=== PATIENT | male | born 1965 | race Caucasian/White ===

== ENCOUNTER 2023-03-28 22:31 | Inpatient (IN) | payer MEDICAID ==
[~2023-03-28] VITALS: Ht 165.1 cm; Wt 50.1 kg
[~2023-03-28 22:31] MED LIST: AMLO10TA80 PO; DICL50TA7 PO; FERR210T PO; IMOD PO; INSULIN; LISI40TA13 PO; PATI8.4P PO; SEVE800T25 PO; TRAZ-251 PO
[2023-03-29] VITALS (20 sets, daily range): BP systolic 128–177; BP diastolic 63–82; PULSE 48–82; RESP 16–74; TEMP 97.9–98.8; O2SAT 98
[2023-03-29] MEDS ORDERED: INSULIN REGULAR (HUMULIN R) 300UNITS/3ML VIAL IV ONE
[2023-03-29] MEDS ORDERED: SODIUM BICARBONATE 8.4% 1 MEQ/ML 50ML SYR IV ONE
[2023-03-29] MEDS ORDERED: DEXTROSE 50% WATER 50ML SYRINGE IV ONE
[2023-03-29 00:03] LABS: BASOPHILS % 0.5 % (0.0-2.0); CHLORIDE 106 mEq/L (98-107); EOSINOPHILS % 2.6 % (0.0-5.0); HEMATOCRIT. 33.8 % (42.0-52.0); INDEX HEMOLYSI 4 (1-3); INDEX ICTERIC 1 (1-4); INDEX LIPEMIC 1 (1-3); LYMPHOCYTES % 15.4 % (20.0-50.0); MEAN CORPUSCULAR HEMOGLOBIN 30.7 pg (28.0-32.0); MEAN CORPUSCULAR HGB CONC 32.4 g/dL (31.0-37.0); MEAN CORPUSCULAR VOLUME 94.6 fL (80.0-94.0); MEAN PLATELET VOLUME 7.7 fl (7.4-10.4); MONOCYTES % 11.8 % (2.0-8.0); NEUTROPHILS % 69.7 % (40.0-76.0); PLATELET 146 x1000/uL (130-400); RED BLOOD CELL COUNT 3.58 mill/uL (4.7-6.1); RED CELL DISTRIBUTION WIDTH 15.5 % (11.6-14.6); SODIUM 130 mEq/L (136-145); WHITE BLOOD COUNT 11.8 x1000/uL (4.5-11.0)
[2023-03-29 00:14] LABS: ALANINE AMINOTRANSFERASE 23 IU/L (13-61); ALBUMIN 2.9 g/dL (3.4-5.0); ASPARTATE AMINOTRANSFERASE 41 IU/L (15-37); BILIRUBIN TOTAL 0.7 mg/dL (0.1-1.0); CALCIUM 8.9 mg/dL (8.5-10.1); CARBON DIOXIDE 15 mEq/L (21-32); GLUCOSE 190 mg/dL (70-105); PROTEIN TOTAL 7.6 g/dL (6.0-8.3); TROPONIN I HIGH SENSITIVITY 17 ng/L (<78); UREA NITROGEN BLOOD 49 mg/dL (7-21)
[2023-03-29 00:22] LABS: CREATININE 6.3 mg/dL (0.6-1.3); POTASSIUM 6.5 mEq/L (3.5-5.1)
[2023-03-29] MEDS ORDERED: ALBUTEROL (0.083%) 2.5MG/3ML NEB HHN NR (01:30)
[2023-03-29] MEDS ORDERED: CALCIUM CHLORIDE 1GM/10ML SYR IV NR (01:30)
[2023-03-29] MEDS ORDERED: SODIUM BICARBONATE 8.4% 1 MEQ/ML 50ML SYR IV NR (01:30)
[2023-03-29 02:58] LABS: TROPONIN I HIGH SENSITIVITY 20 ng/L (<78)
[2023-03-29] MEDS ORDERED: MAGNESIUM/ALUMINUM HYDROXIDE/SIMETHICONE 30ML UDC PO PRN (05:45)
[2023-03-29] MEDS ORDERED: ACETAMINOPHEN 325MG TABLET PO PRN ×2 (05:45)
[2023-03-29] MEDS ORDERED: DEXTROSE 50% WATER 50ML SYRINGE IV PRN (05:45)
[2023-03-29] MEDS ORDERED: IPRATROPIUM/ALBUTEROL 0.5-3(2.5)MG/3ML NEB NEB PRN (05:45)
[2023-03-29] MEDS ORDERED: CLONIDINE 0.1MG TABLET PO PRN (05:45)
[2023-03-29] MEDS ORDERED: ONDANSETRON HCL 4MG/2ML INJ IV PRN (05:45)
[2023-03-29] MEDS ORDERED: GUAIFENESIN 200MG/10ML SUGAR FREE UDC PO PRN (05:45)
[2023-03-29] MEDS: BLOOD SUGAR DIAGNOSTIC STRIP TEST SCH ×4 (07:30→21:00)
[2023-03-29] MEDS: INSULIN LISPRO 100 UNITS/ML SUBCUT SCH ×4 (08:00→21:00)
[2023-03-29] MEDS: HYDROCODONE/ACETAMINOPHEN 5/325MG TABLET PO PRN ×2 (09:14→19:55)
[2023-03-29] MEDS: ENOXAPARIN 30MG/0.3ML SYR SUBCUT SCH (09:14)
[2023-03-29 09:51] LABS: BASOPHILS % 0.5 % (0.0-2.0); EOSINOPHILS % 0.1 % (0.0-5.0); HEMATOCRIT. 34.3 % (42.0-52.0); HEMOGLOBIN. 11.3 g/dL (14.0-18.0); LYMPHOCYTES % 9.2 % (20.0-50.0); MEAN CORPUSCULAR HEMOGLOBIN 30.9 pg (28.0-32.0); MEAN CORPUSCULAR VOLUME 93.6 fL (80.0-94.0); MEAN PLATELET VOLUME 9.1 fl (7.4-10.4); MONOCYTES % 10.6 % (2.0-8.0); NEUTROPHILS % 79.6 % (40.0-76.0); PLATELET 150 x1000/uL (130-400); RED BLOOD CELL COUNT 3.67 mill/uL (4.7-6.1); RED CELL DISTRIBUTION WIDTH 15.7 % (11.6-14.6); WHITE BLOOD COUNT 8.4 x1000/uL (4.5-11.0)
[2023-03-29 09:53] LABS: CHLORIDE 104 mEq/L (98-107); INDEX HEMOLYSI 1 (1-3); INDEX ICTERIC 1 (1-4); INDEX LIPEMIC 1 (1-3); POTASSIUM 4.6 mEq/L (3.5-5.1); SODIUM 134 mEq/L (136-145)
[2023-03-29 10:04] LABS: ALANINE AMINOTRANSFERASE 19 IU/L (13-61); ALBUMIN 3.1 g/dL (3.4-5.0); ASPARTATE AMINOTRANSFERASE 18 IU/L (15-37); BILIRUBIN TOTAL 0.5 mg/dL (0.1-1.0); CALCIUM 9.9 mg/dL (8.5-10.1); CARBON DIOXIDE 18 mEq/L (21-32); GLUCOSE 153 mg/dL (70-105); PHOSPHORUS 5.7 mg/dL (2.5-4.9); PROTEIN TOTAL 7.7 g/dL (6.0-8.3); UREA NITROGEN BLOOD 59 mg/dL (7-21)
[2023-03-29 10:14] LABS: CREATININE 7.2 mg/dL (0.6-1.3)
[2023-03-29] MEDS: FOLIC ACID/VITAMIN B COMP W-C TABLET PO SCH (13:30)
[2023-03-29] MEDS: AMLODIPINE 10MG TABLET PO SCH (13:45)
[2023-03-29 14:47] LABS: HEPATITIS B SURFACE ANTIGEN NEGATIVE
[2023-03-29 15:15] LABS: HEPATITIS C VIR.AB 0.15 INDEXVAL (0.00-0.80)
[2023-03-30] VITALS: BP 162/43; PULSE 59; RESP 30; TEMP 99.9
[2023-03-30 04:00] VITALS: BP 143/50; PULSE 57; RESP 17; TEMP 99.5
[2023-03-30] MEDS: METHYLPREDNISOLONE SOD SUCC 40MG VIAL IV SCH ×2 (05:28→17:34)
[2023-03-30 07:11] LABS: HEMATOCRIT. 32.8 % (42.0-52.0); HEMOGLOBIN. 10.9 g/dL (14.0-18.0); MEAN CORPUSCULAR HEMOGLOBIN 31.4 pg (28.0-32.0); MEAN CORPUSCULAR HGB CONC 33.3 g/dL (31.0-37.0); MEAN CORPUSCULAR VOLUME 94.2 fL (80.0-94.0); MEAN PLATELET VOLUME 8.9 fl (7.4-10.4); PLATELET 135 x1000/uL (130-400); RED BLOOD CELL COUNT 3.49 mill/uL (4.7-6.1); RED CELL DISTRIBUTION WIDTH 16.1 % (11.6-14.6)
[2023-03-30 07:12] LABS: DIFFERENTIAL COMMENT 1
[2023-03-30 07:55] LABS: CHLORIDE 100 mEq/L (98-107); INDEX HEMOLYSI 1 (1-3); INDEX ICTERIC 1 (1-4); INDEX LIPEMIC 1 (1-3); POTASSIUM 5.3 mEq/L (3.5-5.1); SODIUM 136 mEq/L (136-145)
[2023-03-30 08:00] VITALS: BP 162/57; PULSE 62; RESP 62; TEMP 97.4
[2023-03-30] MEDS: ENOXAPARIN 30MG/0.3ML SYR SUBCUT SCH (08:00)
[2023-03-30 08:13] LABS: ALANINE AMINOTRANSFERASE 16 IU/L (13-61); ALBUMIN 3.2 g/dL (3.4-5.0); ASPARTATE AMINOTRANSFERASE 15 IU/L (15-37); BILIRUBIN TOTAL 0.8 mg/dL (0.1-1.0); CARBON DIOXIDE 20 mEq/L (21-32); CREATINE KINASE 53 IU/L (39-308); GLUCOSE 128 mg/dL (70-105); HAPTOGLOBIN 222 mg/dL (30-200); IRON 21 ug/dL (50-175); LACTATE DEHYDROGENASE 168 IU/L (100-240); PHOSPHORUS 6.5 mg/dL (2.5-4.9); PROTEIN TOTAL 8.2 g/dL (6.0-8.3); TOTAL IRON BINDING CAPACITY 213 ug/dL (250-450); UREA NITROGEN BLOOD 36 mg/dL (7-21); URIC ACID 4.6 mg/dL (2.6-7.2)
[2023-03-30 08:19] LABS: CREATININE 5.3 mg/dL (0.6-1.3)
[2023-03-30] MEDS: BLOOD SUGAR DIAGNOSTIC STRIP TEST SCH ×4 (08:26→19:40)
[2023-03-30] MEDS: FOLIC ACID/VITAMIN B COMP W-C TABLET PO SCH (09:00)
[2023-03-30] MEDS: COLCHICINE 0.6MG TABLET PO SCH (09:00)
[2023-03-30] MEDS: AMLODIPINE 10MG TABLET PO SCH (09:00)
[2023-03-30 09:01] LABS: BODY FLUID RBC 69000 /cu mm (0-2000); BODY FLUID WBC 61250 /cu mm (0-200)
[2023-03-30 09:29] LABS: VITAMIN B12 SERUM 663 pg/mL (211-911)
[2023-03-30 09:51] LABS: ERYTHROCYTE SEDIMENTATION RATE 83 mm/hr (0-20)
[2023-03-30 10:51] LABS: BODY FLUID MONOCYTES 5 %
[2023-03-30 12:00] VITALS: BP 158/57; PULSE 65; RESP 17; TEMP 98
[2023-03-30] MEDS: INSULIN LISPRO 100 UNITS/ML SUBCUT SCH ×3 (12:05→20:34)
[2023-03-30 12:07] LABS: FERRITIN 1356 ng/mL (22-322)
[2023-03-30] MEDS ORDERED: NALOXONE HCL 0.4MG/ML VIAL IV PRN (12:45)
[2023-03-30] MEDS: VELTASSA PO SCH (12:45)
[2023-03-30] MEDS ORDERED: NON FORMULARY PATIENT HOME MED PO SCH (13:00)
[2023-03-30] MEDS: OMEPRAZOLE 20MG CAPSULE EXTENDED RELEASE PO SCH (13:18)
[2023-03-30 16:00] VITALS: BP 161/62; PULSE 62; RESP 15; TEMP 98.3
[2023-03-30 19:19] VITALS: BP 150/55; PULSE 65; RESP 18; TEMP 97.5
[2023-03-31] VITALS (14 sets, daily range): BP systolic 127–168; BP diastolic 40–81; PULSE 56–70; RESP 18–19; TEMP 96.7–98
[2023-03-31 05:11] LABS: PLATELET ESTIMATE NORMAL
[2023-03-31] MEDS: BLOOD SUGAR DIAGNOSTIC STRIP TEST SCH ×4 (06:14→21:48)
[2023-03-31] MEDS: OMEPRAZOLE 20MG CAPSULE EXTENDED RELEASE PO SCH (06:22)
[2023-03-31] MEDS: METHYLPREDNISOLONE SOD SUCC 40MG VIAL IV SCH ×2 (06:24→18:00)
[2023-03-31 06:46] LABS: HEMATOCRIT. 34.9 % (42.0-52.0); HEMOGLOBIN. 11.4 g/dL (14.0-18.0); MEAN CORPUSCULAR HEMOGLOBIN 30.7 pg (28.0-32.0); MEAN CORPUSCULAR HGB CONC 32.7 g/dL (31.0-37.0); MEAN PLATELET VOLUME 8.7 fl (7.4-10.4); PLATELET 180 x1000/uL (130-400); RED BLOOD CELL COUNT 3.71 mill/uL (4.7-6.1); RED CELL DISTRIBUTION WIDTH 15.5 % (11.6-14.6); WHITE BLOOD COUNT 8.9 x1000/uL (4.5-11.0)
[2023-03-31 07:27] LABS: CREATININE 6.8 mg/dL (0.6-1.3)
[2023-03-31 08:30] LABS: DIFFERENTIAL COMMENT 1
[2023-03-31] MEDS: COLCHICINE 0.6MG TABLET PO SCH (08:57)
[2023-03-31] MEDS: FOLIC ACID/VITAMIN B COMP W-C TABLET PO SCH (08:57)
[2023-03-31] MEDS: INSULIN LISPRO 100 UNITS/ML SUBCUT SCH ×4 (08:58→21:49)
[2023-03-31] MEDS: AMLODIPINE 10MG TABLET PO SCH ×2 (09:09→12:04)
[2023-03-31] MEDS: VELTASSA PO SCH (09:09)
[2023-03-31 13:11] LABS: ANTI-JO 1 ABS <0.2 AI (0.0-0.9); RNP ANTIBODY 0.2 AI (0.0-0.9); SMITH ANTIBODY < 0.2 AI (0.0-0.9)
[2023-03-31 13:59] LABS: PLATELET ESTIMATE NORMAL
[2023-03-31] MEDS: DICLOFENAC SODIUM 75MG DR (EC) TABLET PO SCH (16:44)
[2023-03-31] MEDS: CEFTRIAXONE 2 G in DEXTROSE 5% WATER 50 ML IV SCH ×2 (17:55→18:50)
[2023-03-31] MEDS ORDERED: LIDOCAINE HCL 1% 10 MG/ML 10ML VIAL IJ NR (19:00)
[2023-03-31] MEDS ORDERED: METHYLPREDNISOLONE ACETATE 40MG/ML VIAL IM NR (19:30)
[2023-04-01 00:29] VITALS: BP 128/46; PULSE 64; RESP 20; TEMP 97.8
[2023-04-01 04:26] VITALS: BP 134/88; PULSE 70; RESP 20; TEMP 97
[2023-04-01] MEDS: BLOOD SUGAR DIAGNOSTIC STRIP TEST SCH ×4 (06:43→21:00)
[2023-04-01] MEDS: METHYLPREDNISOLONE SOD SUCC 40MG VIAL IV SCH (06:43)
[2023-04-01] MEDS: OMEPRAZOLE 20MG CAPSULE EXTENDED RELEASE PO SCH (06:44)
[2023-04-01] MEDS: INSULIN LISPRO 100 UNITS/ML SUBCUT SCH ×4 (06:47→21:00)
[2023-04-01 07:18] LABS: HEMATOCRIT 37.7 % (42.0-52.0); HEMOGLOBIN 12.2 g/dL (14.0-18.0); MEAN CORPUSCULAR HEMOGLOBIN 30.8 pg (28.0-32.0); MEAN CORPUSCULAR HGB CONC 32.3 g/dL (31.0-37.0); MEAN CORPUSCULAR VOLUME 95.1 fL (80.0-94.0); PLATELET 200 x1000/uL (130-400); RED BLOOD CELL COUNT 3.97 mill/uL (4.7-6.1); RED CELL DISTRIBUTION WIDTH 15.9 % (11.6-14.6); WHITE BLOOD COUNT 8.1 x1000/uL (4.5-11.0)
[2023-04-01 07:59] VITALS: BP 139/53; PULSE 67; RESP 20; TEMP 97.9
[2023-04-01 08:49] LABS: CALCIUM 7.9 mg/dL (8.5-10.1); PHOSPHORUS 6.5 mg/dL (2.5-4.9); POTASSIUM 4.7 mEq/L (3.5-5.1)
[2023-04-01] MEDS: COLCHICINE 0.6MG TABLET PO SCH (09:05)
[2023-04-01] MEDS: FOLIC ACID 1MG TABLET PO SCH (09:06)
[2023-04-01] MEDS: HYDROXYCHLOROQUINE SULFATE 200MG TABLET PO SCH (09:06)
[2023-04-01] MEDS: METHOTREXATE SODIUM 2 . 5MG TABLET PO SCH ×3 (09:06→17:03)
[2023-04-01] MEDS: FOLIC ACID/VITAMIN B COMP W-C TABLET PO SCH (09:06)
[2023-04-01] MEDS: VELTASSA PO SCH (09:07)
[2023-04-01 09:59] LABS: CREATININE 5.4 mg/dL (0.6-1.3)
[2023-04-01 12:27] VITALS: BP 156/59; PULSE 66; RESP 18; TEMP 97.4
[2023-04-01] MEDS ORDERED: LIDOCAINE HCL 1% 10 MG/ML 10ML VIAL ONE (12:31)
[2023-04-01] MEDS ORDERED: NON FORMULARY PATIENT HOME MED PO SCH (13:00)
[2023-04-01 15:55] VITALS: BP 135/35; PULSE 69; RESP 18; TEMP 97.7
[2023-04-01] MEDS: DICLOFENAC SODIUM 75MG DR (EC) TABLET PO SCH (17:03)
[2023-04-01] MEDS: CEFTRIAXONE 2 G in DEXTROSE 5% WATER 50 ML IV SCH (17:04)
[2023-04-01 20:00] VITALS: BP 138/55; PULSE 72; RESP 16; TEMP 97.4
[2023-04-02] VITALS (15 sets, daily range): BP systolic 127–152; BP diastolic 45–80; PULSE 60–88; RESP 18–20; TEMP 96.6–98.7; O2SAT 94
[2023-04-02] MEDS: BLOOD SUGAR DIAGNOSTIC STRIP TEST SCH ×3 (06:35→16:30)
[2023-04-02] MEDS: OMEPRAZOLE 20MG CAPSULE EXTENDED RELEASE PO SCH (06:37)
[2023-04-02] MEDS: INSULIN LISPRO 100 UNITS/ML SUBCUT SCH ×3 (06:38→17:20)
[2023-04-02] MEDS: FOLIC ACID 1MG TABLET PO SCH (08:28)
[2023-04-02] MEDS: COLCHICINE 0.6MG TABLET PO SCH (08:28)
[2023-04-02] MEDS: FOLIC ACID/VITAMIN B COMP W-C TABLET PO SCH (08:28)
[2023-04-02] MEDS: AMLODIPINE 10MG TABLET PO SCH (08:29)
[2023-04-02] MEDS: HYDROXYCHLOROQUINE SULFATE 200MG TABLET PO SCH (08:34)
[2023-04-02] MEDS: VELTASSA PO SCH (08:35)
[2023-04-02] MEDS ORDERED: PREDNISONE 20MG TABLET PO SCH (09:00)
[2023-04-02 09:07] LABS: ANGIOTENSION CONVERTING ENZYME 5 U/L (14-82)
[2023-04-02 13:07] LABS: CYTOPLASMIC C-ANCA <1:20 titer (Neg:<1:20); PERINUCLEAR P-ANCA <1:20 titer (Neg:<1:20)
[2023-04-02] MEDS: DICLOFENAC SODIUM 75MG DR (EC) TABLET PO SCH (17:15)
[2023-04-02] MEDS ORDERED: COLC0.6C3 MT (18:53)
[2023-04-02] MEDS ORDERED: FOLI-43 PO (18:53)
[2023-04-02] MEDS ORDERED: AMLO10TA80 PO (18:53)
[2023-04-02] MEDS ORDERED: LEVO-65 MT (18:53)
[2023-04-02] MEDS ORDERED: METH2.5T PO (18:53)
[2023-04-02] MEDS ORDERED: P20 PO (18:53)
[2023-04-02] MEDS ORDERED: HYDR200T35 PO (18:53)
[2023-04-02] MEDS ORDERED: LISI40TA13 PO (18:54)
[2023-04-02 19:07] LABS: ANTI-MYELOPEROXIDASE AB < 0.2 units (0.0-0.9); ANTI-PROTEINASE 3 ABS < 0.2 units (0.0-0.9); GLOMERULAR BASEMENT MEMB AB < 0 units (0.0-0.9)
[2023-04-03 09:07] LABS: ALDOLASE 8.6 U/L (3.3-10.3)
[2023-04-07 15:11] LABS: ACTIN (SMOOTH MUSCLE) ANTIBODY 6 Units (0-19); ANA IFA Negative (.); ANTI-DNA DOUBLE STRANDED QUANT 2 IU/mL (0-9); ATYPICAL P-ANCA <1:20 titer (Neg:<1:20)
== END 2023-04-02 19:00 | disposition home or self-care (01) | DRG 344 ==
LOC: ER 22:31 → EDBEDREQ 03-29 03:49 → 5EST 03-29 04:42 → 7EST 03-30 07:47
PROVIDERS: ADMIT Internal Medicine; ATTEND Internal Medicine
PROC: 5A1D70Z Performance of Urinary Filtration, Intermittent, Less than 6 Hours Per Day (ICD-10-PCS; 2023-03-29)
PROC: 0S9C3ZZ Drainage of Right Knee Joint, Percutaneous Approach (ICD-10-PCS; 2023-03-29)
PROC: 5A1D70Z Performance of Urinary Filtration, Intermittent, Less than 6 Hours Per Day (ICD-10-PCS; 2023-03-30)
PROC: 0S9C3ZZ Drainage of Right Knee Joint, Percutaneous Approach (ICD-10-PCS; principal; 2023-03-31)
PROC: 4A10X4Z Monitoring of Central Nervous Electrical Activity, External Approach (ICD-10-PCS; 2023-03-31)
PROC: 02HV33Z Insertion of Infusion Device into Superior Vena Cava, Percutaneous Approach (ICD-10-PCS; 2023-04-01)
PROC: B548ZZA Ultrasonography of Superior Vena Cava, Guidance (ICD-10-PCS; 2023-04-01)
PROC: 02H633Z Insertion of Infusion Device into Right Atrium, Percutaneous Approach (ICD-10-PCS; 2023-04-01)
PROC: 5A1D70Z Performance of Urinary Filtration, Intermittent, Less than 6 Hours Per Day (ICD-10-PCS; 2023-04-02)
DX: M00.9 Pyogenic arthritis, unspecified (principal); I13.2 Hypertensive heart and chronic kidney disease with heart failure and with stage 5 chronic kidney disease, or end stage renal disease; N18.6 End stage renal disease; E44.0 Moderate protein-calorie malnutrition; D63.1 Anemia in chronic kidney disease; E11.22 Type 2 diabetes mellitus with diabetic chronic kidney disease; E83.39 Other disorders of phosphorus metabolism; M25.461 Effusion, right knee; M11.9 Crystal arthropathy, unspecified; E87.5 Hyperkalemia; D86.9 Sarcoidosis, unspecified; M13.0 Polyarthritis, unspecified; S83.511A Sprain of anterior cruciate ligament of right knee, initial encounter; E11.65 Type 2 diabetes mellitus with hyperglycemia; R00.1 Bradycardia, unspecified; Z68.1 Body mass index [BMI] 19.9 or less, adult; M06.9 Rheumatoid arthritis, unspecified; D50.9 Iron deficiency anemia, unspecified; M10.9 Gout, unspecified; E78.5 Hyperlipidemia, unspecified; G89.29 Other chronic pain; X58.XXXA Exposure to other specified factors, initial encounter; Z87.81 Personal history of (healed) traumatic fracture; Z99.2 Dependence on renal dialysis; Z99.3 Dependence on wheelchair; Z79.899 Other long term (current) drug therapy; Z87.891 Personal history of nicotine dependence
CPT/HCPCS: 36415; 36573; 71045; 72100; 73030; 73130; 73560; 73620; 73721; 80048; 80053; 80069; 82085; 82164; 82550; 82607; 82728; 82746; 82962; 83010; 83036; 83516; 83520; 83540; 83550; 83605; 83615; 83735; 84100; 84145; 84484; 84550; 85025; 85027; 85044; 85379; 85651; 86225; 86235; 86256; 86332; 86431; 86803; 87340; 89060; 90935; 93005; 93306; 93970; 95816; 97110; 97116; 97162; 97166; 97530; 99291; C1725; C1893; J0696; J1030; J1650; J1815; J2920; J3490; J7060; J7512; J8610